=== PATIENT | male | born 1970 | race African-American/Black ===

== ENCOUNTER 2024-12-29 15:04 | Outpatient (AMB) | payer MEDICAID, SELFPAY ==
--- NOTE | 2024-12-29 15:15 | MHC.OFFVIS ---
Intake Visit Reasons: ED Intake Note: Patient is present for ED Urology Medication:NONE Antibiotic Allergy:NONE Blood Thinner:NONE Combat Control Manager Required: No Combat Control Manager Services: Combat Control Manager Present Combat Control Manager Name: [id number] Allergies No Known Allergies Allergy (Verified 12/29/24 15:59) Medication List - Last Reconciled 12/29/24 by NICHOL Wray No Known Home Meds HPI Comments Details: Speedy is a 54-year-old Samalian speaking male patient of Dr. Wong. He has a past medical history of low-back pain, overweight, and hypertension. He presents to the office today as a new patient for erectile dysfunction. He reports symptoms have been present for 18 months. He reports having followed up with his PCP at which time recommendations were made for urology referral for further assessment evaluation. In review of patient's chart it does appear Viagra was prescribed however during assessment and evaluation today he denies having trialed any other medications for erectile dysfunction. He reports he is able to obtain an erection however feels it is not adequate for penetration. He denies any previous trauma and or recreational drug use. We did discussed potential causes of ED as well as further treatment options and risks and benefits of these treatment options. He is also reporting penile atrophy. However in assessment of the patient today the penis is circumcised and appears within normal limits with no open areas, drainage, and or masses palpated. He denies any bothersome urinary issues. He denies urinary urgency, urinary frequency, incontinence, nocturia, hematuria, dysuria, foul smelling urine, changes to urinary stream, flank pain, fever, and or chills. He is happy with his current voiding parameters. We discussed obtaining PSA and testosterone free and total for further assessment evaluation. All questions were answered. He otherwise offers no other issues or concerns at this time. Review of Systems Const All systems reviewed & are unremarkable except as noted in HPI and below Physical Exam Const General: cooperative, healthy appearing, comfortable, no acute distress, well developed, alert and awake Nutritional Appearance: overweight Orientation/consciousness: patient oriented x3 Limitations: language barrier HEENT Head: Yes normal to inspection, Yes normocephalic and Yes atraumatic Ears: hearing grossly normal bilaterally Eyes General: appearance normal, both eyes and all related structures Neck Neck: Yes normal visual inspection and Yes trachea midline Chest Chest palpation & inspection: normal inspection of the chest Resp Effort & Inspection: normal respiratory effort and able to speak in complete sentences Cardio Rate: regular rate GI Inspection: Yes normal to inspection General: Yes no CVA tenderness Back/Spine/Pelvis Back: no CVA tenderness Skin General skin exam: no rashes or lesions noted Neuro General: patient oriented x3 Extrem General: Yes normal to inspection Psych Appearance: grossly normal and well kempt Mental Status: mental status grossly normal Speech and movement: Normal speech and movement present and Clear speech present Affect: normal affect Attitude: cooperative Thought process: Normal thought process present Thought content: Normal thought content present Insight: Fair insight present (Psych) Judgement: Fair judgement present (Psych) Assessment & Plan Assessment & Plan (1) Erectile dysfunction: Code(s): N52.9 - Male erectile dysfunction, unspecified Category: Medical Plan We discussed at length potential causes of ED as well as further treatment options and risks and benefits of these treatment options. All questions were answered. He currently denies any bothersome urinary issues or concerns. He reports be happy with current voiding parameters. Information provided regarding penile pump. Start low-dose Cialis as discussed and prescribed. Will obtain PSA and testosterone for further assessment evaluation. Follow-up in 3 months with labs to be completed prior; or sooner with any issues, concerns, and or questions. Orders: Orders Testosterone, Free/Total Today N52.9 - Male erectile dysfunction, unspecified Prostate Specific Antigen Today N52.9 - Male erectile dysfunction, unspecified Medications: New tadalafil (Cialis) [id number] [facility] [id number] Member [id number] 5 mg PO DAILY 90 tabs 1RF 90 days Patient Instructions: The patient had an opportunity to ask questions regarding the treatment plan. All questions were answered. Physical exam, labs, and imaging were discussed and reviewed in detail. As well as risks, benefits, and discussion of treatment choices. No major barriers to understanding were identified. The patient expressed understanding and agreement with the above treatment plan. The patient was made aware they should contact our office by phone for worsening of their current condition, the appearance of new symptoms, or with any questions or concerns. Compliance is encouraged with any medications and follow up testing that is ordered. It is a privilege to be allowed the opportunity to participate in? your urological care.? Again, if you have any questions or concerns If you have any questions or concerns please do not hesitate to contact me. The office is [phone]. This note is constructed using voice recognition software. While every effort has been made to ensure accuracy timber cutter errors may have been included. Yours sincerely, NICHOL Wray Coding Level of Care Code New Pt Level 4 (56017) Diagnoses Erectile dysfunction N52.9
== END 2024-12-29 16:03 | disposition home or self-care (01) ==
LOC: HO.HUSH 15:04
PROVIDERS: PCP Nurse Practitioner; Visit Provider Nurse Practitioner Family
DX: N52.9 Male erectile dysfunction, unspecified (principal)
CPT/HCPCS: 99204

== ENCOUNTER → 2024-12-29 15:04 | Outpatient (BNVA) | payer MEDICAID, SELFPAY | PROVIDERS: PCP Nurse Practitioner; Visit Provider Nurse Practitioner Family | DX: N52.9 Male erectile dysfunction, unspecified (principal) | CPT/HCPCS: 99212 ==